=== PATIENT | female | born 1970 | race Caucasian/White ===

== ENCOUNTER 2019-05-11 07:59 | Outpatient (CLI) | payer OTHER ==
--- NOTE | 2019-06-07 10:41 | MMO ---
Bilateral MAMMO Bilat Screen [facility]. CLINICAL HISTORY: Patient is 49 years old and is seen for screening. The patient has no family history of breast cancer. The patient has no personal history of cancer. VIEWS: The views performed were: bilateral craniocaudal with tomosynthesis and bilateral mediolateral oblique with tomosynthesis. MAMMOGRAM FINDINGS: The breasts are heterogeneously dense, which could obscure a lesion on mammography. There are benign appearing calcifications seen in both breasts. There are no suspicious masses, suspicious calcifications, or new areas of architectural distortion. IMPRESSION: THERE IS NO MAMMOGRAPHIC EVIDENCE OF MALIGNANCY. A ROUTINE FOLLOW-UP MAMMOGRAM IN 1 YEAR IS RECOMMENDED. THE RESULTS OF THIS EXAM WERE SENT TO THE PATIENT. ACR BI-RADS Category 2 - Benign finding MAMMOGRAPHY NOTE: 1. A negative mammogram report should not delay a biopsy if a dominant of clinically suspicious mass is present. 2. Approximately 10% to 15% of breast cancers are not detected by mammography. 3. Adenosis and dense breasts may obscure an underlying neoplasm. Reported by: RICCARDO RUSSELL MD Electonically Signed: [id number]
== END 2019-05-11 08:00 | disposition home or self-care (01) ==
LOC: BICMAMMO 07:59
PROVIDERS: ATTEND Family Medicine
DX: Z12.31 Encounter for screening mammogram for malignant neoplasm of breast (principal)
CPT/HCPCS: 77063; 77067

== ENCOUNTER 2019-05-29 10:47 | Outpatient (CLI) | payer OTHER ==
--- NOTE | 2019-05-29 11:17 | RAD ---
XR Hip Rt 2-3 View HISTORY: Right hip pain x1 year COMPARISON: None. FINDINGS: Joint space is fairly well-preserved without significant arthritic change is no fracture or other bony findings. IMPRESSION: Unremarkable right hip.
--- NOTE | 2019-05-29 11:18 | RAD ---
XR Sacroiliac Joints >=3 View HISTORY: SI joint and right hip pain COMPARISON: None. FINDINGS: The SI joints are normal in appearance no bony ankylosis or erosive change. IMPRESSION: Unremarkable SI joints.
== END 2019-05-29 10:48 | disposition home or self-care (01) ==
LOC: SCSRAD 10:47
PROVIDERS: ATTEND Family Medicine
DX: M25.551 Pain in right hip (principal); M53.3 Sacrococcygeal disorders, not elsewhere classified
CPT/HCPCS: 72202